=== PATIENT | female | born 1955 | race African-American/Black ===

== ENCOUNTER 2022-05-14 11:27 | Outpatient (CLI) | payer MEDICARE ==
[2022-05-14 13:41] LABS: Hemoglobin 11.3 g/dL (12.0-15.5); Mean Corpuscular HGB CONC 34.8 g/dL (32.0-36.0); Mean Corpuscular Hemoglobin 28.2 pg (27.0-33.0); Mean Platelet Volume 10.2 fl (7.4-10.4); Platelet Count 313 10x3/uL (150-450); RBC Distribution Width 15.6 % (11.5-14.5); Red Blood Cell (RBC) Count 4.01 10x6/uL (3.90-5.03); White Blood Cell (WBC) Count 9.3 10x3/uL (3.5-10.5)
[2022-05-14 14:04] LABS: Anion Gap 19 mmol/L (10-20); BUN (Urea Nitrogen) 28 mg/dL (9.8-20.1); Calc. Creatinine Clearance 0 mL/min (70-130); Calcium 9.7 mg/dL (7.8-10.44); Carbon Dioxide 25 mmol/L (23-31); Chloride 98 mmol/L (98-107); Estimated GFR 33; Glucose 181 mg/dL (80-115); Potassium 4.5 mmol/L (3.5-5.1); Sodium 137 mmol/L (136-145)
== END 2022-05-14 11:28 | disposition home or self-care (01) ==
LOC: LABBT 11:27
PROVIDERS: ATTEND Neurological Surgery
DX: Z01.818 Encounter for other preprocedural examination (principal); Z20.822 Contact with and (suspected) exposure to COVID-19
CPT/HCPCS: 80048; 85027; 87811; 93005; 93010

== ENCOUNTER 2022-05-19 06:47 | Day surgery (SDC) | payer MEDICARE ==
[2022-05-18 11:48] VITALS: BMI 30.4
[2022-05-19] MEDS ORDERED: EPINEPHrine 1 MG/ML AMP ONE (08:31)
[2022-05-19] MEDS ORDERED: Bupivacaine PF 0.5% 30 ML VIAL ONE (08:31)
[2022-05-19] MEDS ORDERED: fentaNYL Citrate/PF 100 MCG/2 ML SYRINGE ONE (08:45)
[2022-05-19] MEDS ORDERED: Sodium Chloride 0.9% 100 ML ONE ×2 (08:50→12:16)
[2022-05-19] MEDS ORDERED: CEFAZOLIN 2 GM VIAL ONE ×2 (08:50→12:16)
[2022-05-19] MEDS ORDERED: Dexamethasone 20 MG/5 ML VIAL ONE (09:03)
[2022-05-19] MEDS ORDERED: Rocuronium Bromide 10 MG/ML (10ML VIAL) ONE (09:03)
[2022-05-19] MEDS ORDERED: Ondansetron PF 4 MG/2 ML Vial ONE (09:03)
[2022-05-19] MEDS ORDERED: PROPOFOL 200 MG/20 ML VIAL ONE (09:03)
[2022-05-19] MEDS ORDERED: PHENYLEPHRINE-NS 100 MCG/ML 10 ML SYRINGE ONE (09:03)
[2022-05-19] MEDS ORDERED: SUGAMMADEX SODIUM 200 MG/2 ML VIAL ONE (10:01)
[2022-05-19] MEDS ORDERED: Fentanyl 100 MCG/2 ML VIAL ONE ×2 (10:43→11:03)
== END 2022-05-19 12:50 | disposition home or self-care (01) ==
LOC: SDC 06:47
PROVIDERS: ATTEND Neurological Surgery
PROC: 01NB0ZZ Release Lumbar Nerve, Open Approach (ICD-10-PCS; principal; 2022-05-19)
DX: M54.16 Radiculopathy, lumbar region (principal); M48.061 Spinal stenosis, lumbar region without neurogenic claudication; I12.9 Hypertensive chronic kidney disease with stage 1 through stage 4 chronic kidney disease, or unspecified chronic kidney disease; N18.9 Chronic kidney disease, unspecified; D63.1 Anemia in chronic kidney disease; E78.5 Hyperlipidemia, unspecified; I25.10 Atherosclerotic heart disease of native coronary artery without angina pectoris; E03.9 Hypothyroidism, unspecified; G89.4 Chronic pain syndrome; M10.9 Gout, unspecified; M19.90 Unspecified osteoarthritis, unspecified site; Z79.82 Long term (current) use of aspirin; Z79.84 Long term (current) use of oral hypoglycemic drugs; Z79.890 Hormone replacement therapy; Z79.899 Other long term (current) drug therapy; Z88.5 Allergy status to narcotic agent; Z95.1 Presence of aortocoronary bypass graft
CPT/HCPCS: 76000; J0171; J0690; J1100; J2405; J2704; J3010; J3490; S0020

== ENCOUNTER 2022-08-25 12:20 | Outpatient (CLI) | payer MEDICARE ==
[~2022-08-25 12:20] MED LIST: Magnevist 469MG/ML 20 ML VIAL ONE
== END 2022-08-25 12:21 | disposition home or self-care (01) ==
LOC: TBSIIMAG 12:20
PROVIDERS: ATTEND Neurological Surgery
DX: M47.26 Other spondylosis with radiculopathy, lumbar region (principal); M43.16 Spondylolisthesis, lumbar region; M48.061 Spinal stenosis, lumbar region without neurogenic claudication; M89.38 Hypertrophy of bone, other site; M51.16 Intervertebral disc disorders with radiculopathy, lumbar region; M51.37 Other intervertebral disc degeneration, lumbosacral region; Z98.890 Other specified postprocedural states
CPT/HCPCS: 72158

== ENCOUNTER 2022-09-20 13:37 | Outpatient (CLI) | payer MEDICARE | END 2022-09-20 13:38 | disposition home or self-care (01) | LOC: ULT 13:37 | PROVIDERS: ATTEND Neurological Surgery | DX: M25.461 Effusion, right knee (principal); M79.89 Other specified soft tissue disorders ==